=== PATIENT | female | born 1985 | race Caucasian/White ===

== ENCOUNTER 2019-05-31 12:36 | Emergency (ER) | payer OTHER ==
[2019-05-31 12:48] VITALS: BP 130/82; PULSE 105; TEMP 98.4; BMI 29.2
--- NOTE | 2019-05-31 13:28 | PDOC ---
History of Present Illness - General Chief Complaint: Lightheaded Stated Complaint: LIGHTHEADED Time Seen by Provider: 05/31/19 12:55 History Source: Patient Exam Limitations: No Limitations - History of Present Illness Initial Comments: 05/31/19 13:47 Chief complaint: Headache and thyroid issues Patient is a 33-year-old female who was recently diagnosed with thyroid issues, question of whether hypo-or hyper as per her doctor. She is supposed to follow- up with an unit secretary and was unable to make an appointment until June. Patient came to the ER today because she had a headache and she has not been feeling well although very nonspecific. Patient is not ill-appearing. Patient last had blood work done, also related to her thyroid this past . Patient took Advil for her headache and it resolved. GENERAL/CONSTITUTIONAL: No fever, weakness. dizziness HEAD, EYES, EARS, NOSE AND THROAT: No change in vision. No ear pain or discharge. No sore throat. CARDIOVASCULAR: No chest pain RESPIRATORY: No shortness of breath or cough GASTROINTESTINAL: No pain, nausea, vomiting, diarrhea or constipation GENITOURINARY: No dysuria MUSCULOSKELETAL: No neck or back pain SKIN: No rash NEUROLOGIC: No headache, vertigo, loss of consciousness, or loss of sensation. GENERAL: The patient is awake, alert, and fully oriented, in no acute distress. HEAD: Normal with no signs of trauma. EYES: Pupils equal, round and reactive to light, sclera anicteric, conjunctiva clear. ENT: pharynx: no erythema, no exudate, uvula midline NECK: supple CHEST: clear, nontender, rr ABD: soft, nontender BACK: no tenderness or signs of injury EXTREMITIES: Normal range of motion, no edema. NEUROLOGICAL: Normal speech, normal gait. Cranial nerves II through XII grossly intact, no gross focal abnormalities SKIN: Warm, Dry Past History - Past Medical History Allergies/Adverse Reactions: Allergies Allergy/AdvReac Type Severity Reaction Status Date / Time No Known Allergies Allergy Verified 05/31/19 12:48 COPD: No - Psycho Social/Smoking Cessation Hx Smoking History: Never smoked Have you smoked in the past 12 months: No Information on smoking cessation initiated: No Hx Alcohol Use: No Drug/Substance Use Hx: No *Physical Exam - Vital Signs Last Vital Signs Temp Pulse Resp BP Pulse Ox 98.4 F 105 H 18 130/82 100 05/31/19 12:45 05/31/19 12:45 05/31/19 12:45 05/31/19 12:45 05/31/19 12:45 Medical Decision Making - Medical Decision Making 05/31/19 13:48 33-year-old female recently diagnosed thyroid issues, was worked up by her regular doctor, recent blood work last and is trying to make a follow- up with an unit secretary. Patient had headache this morning and felt unwell. Patient took Advil and headache is gone. Patient's vitals are stable. There is no indication for further work-up. Extensive conversation with patient and family. Attempted to call unit secretary office that patient has appointment and they are only there once a week. They gave us the phone number for the [facility] office and she was also given list of unit secretary related to [facility] and recommended to follow-up today with 1 of them to make an appointment. Patient is educated in thyroid emergencies and patient is not having thyroid emergency today. Discussed issues, findings, results, applicable medications and treatments and follow-up. All these were understood and all questions were answered Discharge - Discharge Information Problems reviewed: Yes Clinical Impression/Diagnosis: Headache Qualifiers: Headache type: unspecified Headache chronicity pattern: acute headache Intractability: not intractable Qualified Code(s): R51 - Headache Condition: Stable Disposition: HOME - Admission No - Follow up/Referral Referrals: Kenneth Reyes MD [Primary Care Provider] - - Patient Discharge Instructions Additional Instructions: List of unit secretary, call make an appointment for follow-up to get the full evaluation that you need. Return to the ER if heart is racing, you feel extremely dizzy or weak or any other serious concerns - Post Discharge Activity
== END 2019-05-31 13:48 | disposition home or self-care (01) ==
LOC: JERFT 12:36
DX: R51 Headache (principal); E07.9 Disorder of thyroid, unspecified
CPT/HCPCS: 99281-25